=== PATIENT | male | born 2000 | race Caucasian/White ===

== ENCOUNTER 2020-09-26 02:32 | Emergency (ER) | payer OTHER ==
[~2020-09-26] VITALS: Ht 177.8 cm; Wt 77.1 kg
[2020-09-26 03:45] LABS: ABSOLUTE NEUTROPHILS 2.7 thou/uL (1.4-8.2); BASOPHILS 0.3 % (0.0-2.0); EOSINOPHILS 0.8 % (0.0-3.0); HEMATOCRIT 41.7 % (42.0-52.0); HEMOGLOBIN 14.2 gm/dL (14.0-18.0); LYMPHOCYTES 32.2 % (24.0-44.0); MCH 28.4 pg (26.0-34.0); MCHC 34.1 g/dL (28.0-37.0); MCV 83.2 fL (80.0-100.0); MONOCYTES 9.3 % (1.0-8.0); PLATELET COUNT 218 thou/uL (150-400); POLYS 57.4 % (36.0-66.0); RBC 5.01 mil/uL (4.50-6.00); RDW 12.9 % (10.5-14.5); WBC 4.7 thou/uL (4.0-11.0)
[2020-09-26 03:52] LABS: ANION GAP 8 mmol/L (7-16); BUN 8 mg/dL (7-18); CALCIUM 8.9 mg/dL (8.5-10.1); CHLORIDE 106 mmol/L (98-107); CO2 26 mmol/L (21-32); CREATININE 1.1 mg/dL (0.7-1.3); GLUCOSE 92 mg/dL (74-106); POTASSIUM 3.2 mmol/L (3.5-5.1); SODIUM 140 mmol/L (136-145)
[2020-09-26 04:02] LABS: ALBUMIN 3.7 g/dL (3.4-5.0); SGOT 12 U/L (15-37); SGPT 18 U/L (16-63); TOTAL BILIRUBIN 0.5 mg/dL (0.2-1.0); TOTAL PROTEIN 6.4 g/dL (6.4-8.2); TROPONIN-I <0.06 ng/mL (<0.06)
[2020-09-26 04:07] LABS: URINE BILIRUBIN NEGATIVE (Negative); URINE BLOOD NEGATIVE (Negative); URINE CLARITY CLEAR; URINE COLOR YELLOW; URINE GLUCOSE-RANDOM* NEGATIVE (Negative); URINE KETONES NEGATIVE (Negative); URINE LEUKOCYTES-REFLEX NEGATIVE (Negative); URINE NITRITE-REFLEX NEGATIVE (Negative); URINE PROTEIN (DIPSTICK) NEGATIVE (Negative); URINE SPECIFIC GRAVITY 1.025 (1.005-1.035); URINE UROBILINOGEN 0.2 E.U./dl (0.2-1.0)
[2020-09-26 04:15] LABS: AMP/METHAMP Negative (Negative); BARBITURATES Negative (Negative); BENZODIAZEPINES Negative (Negative); COCAINE Negative (Negative); METHADONE Negative (Negative); OPIATES Negative (Negative); PCP Negative (Negative)
[2020-09-26 05:52] VITALS: BP 115/66
--- NOTE | 2020-09-26 10:56 | EKG ---
[address] [address] ELECTROCARDIOGRAM REPORT Name: CROW ROONEY Room #: DEP ANOOP Abebe#: [id number] Admission: 09/26/20 Attend Phys: Discharge: 09/26/20 Date of : [birth year] Report #: [id number] [facility] ED Test Date: 2020-09-26 Test Time: 02:39:57 Pat Name: CROW ROONEY Department: Room: Gender: Telephonic Nurse Case Manager: LEXII : 2000 Requested By: Ancelmo Adorno Order Number: [id number] MD: Cal Pimentel Measurements Intervals [place] Rate: 78 P: 31 IL: 182 QRS: 55 QRSD: 110 T: 62 QT: 386 QTc: 440 Interpretive Statements Sinus rhythm No previous ECG available for comparison Electronically Signed On 09-26-2020 10:55:54 [facility] by Cal Pimentel [email or web address] <ELECTRONICALLY SIGNED> By: Cal Pimentel MD 09/26/20 1055 [id number] Cal Pimentel MD /EPI
== END 2020-09-26 05:52 | disposition home or self-care (01) ==
LOC: ER 02:32
PROVIDERS: Emergency Medicine
DX: M79.10 Myalgia, unspecified site (principal); R07.89 Other chest pain; E86.0 Dehydration